=== PATIENT | male | born 1995 | race Caucasian/White ===

== ENCOUNTER → 2024-08-21 12:35 | Outpatient (REF) | payer OTHER, SELFPAY | LOC: MRI 3T 12:35 | PROVIDERS: ATTENDING PHYSICIAN Orthopaedic Surgery Sports Medicine; FAMILY PHYSICIAN Physician Assistant | DX: M22.41 Chondromalacia patellae, right knee (principal) | CPT/HCPCS: 70030; 73721 ==

== ENCOUNTER 2024-09-09 16:51 | Outpatient (RCR) | payer OTHER, SELFPAY | END 2024-09-09 23:59 | disposition home or self-care (01) | LOC: RPT 16:51 | PROVIDERS: ATTENDING PHYSICIAN Orthopaedic Surgery Sports Medicine; FAMILY PHYSICIAN Physician Assistant | DX: M22.41 Chondromalacia patellae, right knee (principal); M25.561 Pain in right knee | CPT/HCPCS: 97010; 97110; 97162; 97535 ==

== ENCOUNTER 2024-09-25 14:53 | Outpatient (RCR) | payer OTHER, SELFPAY | END 2024-10-05 11:53 | disposition home or self-care (01) | LOC: RPT 14:53 | PROVIDERS: ATTENDING PHYSICIAN Orthopaedic Surgery Sports Medicine; FAMILY PHYSICIAN Physician Assistant | DX: M22.41 Chondromalacia patellae, right knee (principal); M25.561 Pain in right knee | CPT/HCPCS: 97010; 97110; 97530 ==

== ENCOUNTER 2024-10-30 13:22 | Emergency (ER) | payer OTHER, SELFPAY ==
[2024-10-30 13:29] VITALS: BP 134/98
--- NOTE | 2024-10-30 14:17 | ED.GENMED ---
History of Present Illness
General
Chief Complaint: DVT/Possible Blood Clot
Time Seen by Provider: 10/30/24 13:42
History of Present Illness
History of Present Illness:
Patient is a 29-year-old male with recent anoscopy presenting to the emergency department for knee and calf pain. He states that yesterday he worked overnight. This morning he woke up his knee looks slightly swollen he was having some tightness
and pain in his calf. He spoke to his orthopedic surgeon at [facility] who recommended he come here for ultrasound for rule out DVT. He denies any numbness tingling. No weakness. He is able to ambulate. No fevers or chills. No redness or swelling
to the knee. History of prior blood clots.
Past History
Past History
ED Past Medical History: None
ED Past Surgical History: None
Social History
Tobacco: Non-smoker
Alcohol: None
Drug: None
Personal: Single
Living: alone
Phy Exam
Physical Exam
Physical Exam:
GENERAL: in no acute distress
HEENT: normocephalic, extraocular movements intact
NECK: normal inspection
RESPIRATORY: no respiratory distress
CARDIOVASCULAR: regular rate and rhythm
EXTREMITIES: Right lower extremity with very minimal swelling to the knee, mild tenderness to the calf, no pain with dorsiflexion or plantar flexion of the ankle, knee without any associated erythema edema or warmth
NEUROLOGIC: awake and alert, moves all extremities
SKIN: warm
Course
Orders/Labs/Results
Orders:
Orders
10/30/24 13:24
Legs, Right US [US Periph Venous LOWER Ext RT] Urgent
Comment:
Reason For Exam: calf swelling post-op
Vital Signs
Initial and Last Documented VS:
Initial Vital Signs
Temp Pulse Resp BP Pulse Ox
98 F 86 16 134/98 98
10/30/24 13:29 10/30/24 13:29 10/30/24 13:29 10/30/24 13:29 10/30/24 13:29
Last Documented Vital Signs
Temp Pulse Resp BP Pulse Ox
98 F 86 16 134/98 98
10/30/24 13:29 10/30/24 13:29 10/30/24 13:29 10/30/24 13:29 10/30/24 13:29
MDM/Problems Addressed
Differential Diagnosis Includes:
Patient is a 29-year-old man presenting to the emergency department with knee/calf pain and swelling. On arrival patient's vitals unremarkable exam does show very minimal swelling to the knee with mild tenderness of the calf. Differential consists
of DVT versus overuse from yesterday's work. Unlikely to be septic joint or cellulitis given no erythema edema or warmth to the knee. Ultrasound obtained prior to my evaluation shows no DVT. Patient updated on these findings. Recommended
continued ice elevation and compression. I did offer patient pain control however he denied at this time. Patient to follow-up with orthopedic surgeon next.
*Critical Care Note
Total Time (30-74mins, 75-104mins- exclusive of procedures): Not Applicable
ED Attending Note
-
Portions of this chart may have been created with voice recognition software.� Occasional wrong word or��sound alike� substitutions may have occurred due to the inherent limitations of voice recognition software.
Discharge Plan
Departure
Patient Disposition: Home (Routine Discharge)
Date of Disposition: 10/30/24
Time of Disposition: 14:16
Patient with high blood pressure during this ER visit?: No
Discharge Problem:
Knee pain
Instructions: Knee pain - ED discharge instructions
Activity Restrictions/Additional Instructions:
Please follow up with your orthopedic surgeon as discussed. Continue to rest, ice, elevate and compress your leg.
Interventions
Interventions:
*Risk Screen - Suicide Last Done: 10/30/24 13:29
*Neglect/Abuse Screening Last Done: 10/30/24 13:29
ED- Pulmonary Assessment Last Done: 10/30/24 13:59
ED-Peripheral Vascular Assessment Last Done: 10/30/24 13:59
ED-Skin Assessment Last Done: 10/30/24 13:59
Discharge Date and Time
Print Language: [email or web address]
== END 2024-10-30 14:22 | disposition home or self-care (01) ==
LOC: EMR 13:22
PROVIDERS: EMERGENCY PHYSICIAN Student in an Organized Health Care Education/Training Program; FAMILY PHYSICIAN Physician Assistant
DX: M25.561 Pain in right knee (principal)
CPT/HCPCS: 99284; 93971

== ENCOUNTER 2024-11-11 07:47 | Outpatient (RCR) | payer OTHER, SELFPAY | END 2024-11-11 23:59 | disposition home or self-care (01) | LOC: RPT 07:47 | PROVIDERS: ATTENDING PHYSICIAN Orthopaedic Surgery Sports Medicine; FAMILY PHYSICIAN Physician Assistant | DX: Z47.89 Encounter for other orthopedic aftercare (principal); M22.41 Chondromalacia patellae, right knee; Z73.6 Limitation of activities due to disability | CPT/HCPCS: 97110; 97161; 97535 ==

== ENCOUNTER 2024-12-09 18:58 | Outpatient (RCR) | payer OTHER, SELFPAY | END 2024-12-09 23:59 | disposition home or self-care (01) | LOC: RPT 18:58 | PROVIDERS: ATTENDING PHYSICIAN Orthopaedic Surgery Sports Medicine; FAMILY PHYSICIAN Physician Assistant | DX: Z47.89 Encounter for other orthopedic aftercare (principal); M22.41 Chondromalacia patellae, right knee; Z73.6 Limitation of activities due to disability | CPT/HCPCS: 97110; 97140 ==